=== PATIENT | male | born 1995 | race Asian ===

== ENCOUNTER 2017-06-02 08:48 | Emergency (ER) | payer OTHER ==
[~2017-06-02] VITALS: Ht 180.3 cm; Wt 118.4 kg
[2017-06-02 08:53] VITALS: Ht 180.3 cm; Wt 118.4 kg
[2017-06-02] MEDS ORDERED: CLIN300C2 PO (09:22)
[2017-06-02] MEDS ORDERED: ACETAMINOPHEN IV 100 ML IV ONE (09:45)
[2017-06-02] MEDS ORDERED: SODIUM CHLORIDE 0.9% 1000ML 1,000 ML IV ONE (09:45)
--- NOTE | 2017-06-02 10:32 | DIAGNOSTIC IMAGING REPORT ---
CHEST 2 VIEWS ROUTINE HISTORY: cough, fever COMPARISON: None. FINDINGS: The lungs are clear. Cardiac silhouette is normal in size. No pleural effusions. No pneumothorax. IMPRESSION: No acute process. Electronically signed by: Cristhian Cadena M.D. 06/02/2017 10:31 AM Dictated Date/Time: 06/02/2017 10:27 AM
[2017-06-02 10:33] LABS: BASO % 0.4 %; BASO ABS # 0.02 K/uL (0-0.2); EOS % 1.1 %; EOS ABS # 0.05 K/uL (0-0.5); HEMATOCRIT 43.4 % (42-52); HEMOGLOBIN 14.5 g/dL (14.0-18.0); IG# 0.03 K/uL (0.00-0.02); LYMPH % 11.8 %; LYMPH ABS # 0.53 K/uL (1.2-3.4); MEAN CELL VOLUME 87.9 fL (80-100); MEAN CORPUSCULAR HEMOGLOBIN 29.4 pg (25-34); MEAN CORPUSCULAR HGB CONC 33.4 g/dl (32-36); MONO % 24.3 %; MONO ABS # 1.09 K/uL (0.11-0.59); NEUT % 61.7 %; NEUT ABS # 2.76 K/uL (1.4-6.5); PLATELET COUNT 169 K/uL (130-400); RED CELL DISTRIBUTION WIDTH CV 13.2 % (11.5-14.5); RED CELL DISTRIBUTION WIDTH SD 41.9 fL (36.4-46.3); WHITE BLOOD COUNT 4.48 K/uL (4.8-10.8)
[2017-06-02 10:49] LABS: BLOOD UREA NITROGEN 9 mg/dl (7-18); CARBON DIOXIDE 31 mmol/L (21-32); CREATININE 0.76 mg/dl (0.60-1.40); GLUCOSE 107 mg/dl (70-99); POTASSIUM 4.3 mmol/L (3.5-5.1); SODIUM 137 mmol/L (136-145)
[2017-06-02 11:09] LABS: INFLUENZA B ANTIGEN Neg for Influ B (NEG)
[2017-06-02] MEDS ORDERED: OSELTAMIVIR PHOSPHATE 75 MG CAP PO STA (11:22)
[2017-06-02] MEDS ORDERED: OSEL75CA12 PO (11:25)
[2017-06-02 11:55] VITALS: BP 129/72; PULSE 104; TEMP 37.8; O2SAT 98
--- NOTE | 2017-06-04 05:52 | EMERGENCY ROOM VISIT NOTE ---
ED Visit Note First contact with patient: 09:32 Chief Complaint: Flulike symptoms. History of Present Illness: Mr. Khan is a 22-year-old male who ambulates into the ED with complaints of body aches, sore throat, cough. Patient reports last week he had dental work performed for what he describes as a common infection. He was placed on antibiotics by the dentist and was warned if he developed throat pain he could have a deep wound infection in the neck. He reports last night he started developing body aches, headache, a sore throat , a nonproductive cough. He reports he rested and went to sleep and then this morning when he awoke he was having lightheadedness and felt weak. He feels this is related to last week's dental surgery. Currently he places his headache in the bifrontal area. He rates his discomfort 5/10. He describes his discomfort as a pressure sensation. His pain is nonradiating. His pain worsens slightly with his cough. He has not identified any alleviating factors related to the pain. He has not taken any medications for pain prior to arrival at the hospital. He describes his sore throat as an achy sensation. He also rates this 5/10. His pain is nonradiating. His pain worsens with swallowing. He has not taken any medications for his discomfort. Associated with both of these areas of pain he reports he is still having body aches primarily in the large portion of the mid back, he has had a nonproductive cough and reports that he has had perceived fevers and chills. He denies recent head trauma, lightheadedness, visual changes, hearing changes, difficulty speaking, difficulty swallowing, voice changes, painful talking, neck pain/stiffness, chest pain, shortness of breath, wheezing, palpitations, abdominal pain, nausea, vomiting, diarrhea, constipation, skin eruptions, skin color changes, extremity weakness/numbness/tingling. Review of Systems: As noted above in history of present illness. All body systems were reviewed and found to be negative as noted above. Past Medical History: Patient denies. Current Medications: Patient denies. Allergies to Medications: Patient denies. Social History: Patient is University student; he feels safe in his home environment; he denies tobacco use. Physical Examination: Vital Signs: Date Time Temp Pulse Resp B/P (MAP) Pulse Ox O2 Delivery O2 Flow Rate FiO2 06/02/17 11:55 37.8 104 18 129/72 98 06/02/17 10:37 38.2 113 16 131/62 99 Room Air 06/02/17 08:53 38.0 127 20 130/86 99 Room Air GENERAL: 22-year-old female in mild to moderate distress due to symptoms, nontoxic-appearing, febrile and hemodynamically stable. NEUROLOGICAL: Awake, alert and oriented to person, place and time. Answering questions appropriately and following commands. Normal gait. Good hand eye coordination. No focal motor or sensory deficits. SKIN: Warm, dry and pink. No soft tissue eruptions or trauma noted. HEENT: Atraumatic and normocephalic. No tenderness or erythema over the frontal or maxillary sinuses. External ears are nontender. Auditory canals are pink and patent. Tympanic membranes are not erythematous or edematous. PERRLA. Sclera white and conjunctiva pink without drainage. No drainage from naris, but audible congestion.. Oral cavity moist and pink. Uvula is midline and no abscesses were seen. Pharynx is moderately erythematous and mildly edematous. No tonsillar hypertrophy or exudates. Speech normal ankle or. No lymphadenopathy. Trachea midline. No jugular venous distention. No laryngeal tenderness. BACK: No tenderness over the bony spine. No meningismus or nuchal rigidity. Full range of motion of the cervical spine. No CVA tenderness. THORAX: Lungs sounds are clear to auscultation and equal bilaterally with symmetrical chest wall. No wheezing, rales or rhonchi. No crepitus, tenderness , subcutaneous air or deformities noted. No increased respiratory effort or rate. HEART: Tachycardic rate and rhythm. No gallops, rubs or murmurs are appreciated. ABDOMEN: Flat, soft and nontender. Positive bowel sounds in all quadrants. No guarding, rigidity or organomegaly. EXTREMITIES: Moves all extremities well on command and with purpose. All distal neurovascular statuses are intact and equal bilaterally. No calf tenderness or cords. ED Course: Patient is assessed as noted above. Patient's medication list was reviewed. Laboratory testing: Test 06/02/17 09:58 Range/Units White Blood Count 4.48 4.8-10.8 K/uL Red Blood Count 4.94 4.7-6.1 M/uL Hemoglobin 14.5 14.0-18.0 g/dL Hematocrit 43.4 42-52 % Mean Corpuscular Volume 87.9 80-100 fL Mean Corpuscular Hemoglobin 29.4 25-34 pg Mean Corpuscular Hemoglobin Concent 33.4 32-36 g/dl Platelet Count 169 130-400 K/uL Mean Platelet Volume 11.0 7.4-10.4 fL Neutrophils (%) (Auto) 61.7 % Lymphocytes (%) (Auto) 11.8 % Monocytes (%) (Auto) 24.3 % Eosinophils (%) (Auto) 1.1 % Basophils (%) (Auto) 0.4 % Neutrophils # (Auto) 2.76 1.4-6.5 K/uL Lymphocytes # (Auto) 0.53 1.2-3.4 K/uL Monocytes # (Auto) 1.09 0.11-0.59 K/uL Eosinophils # (Auto) 0.05 0-0.5 K/uL Basophils # (Auto) 0.02 0-0.2 K/uL RDW Standard Deviation 41.9 36.4-46.3 fL RDW Coefficient of Variation 13.2 11.5-14.5 % Immature Granulocyte % (Auto) 0.7 % Immature Granulocyte # (Auto) 0.03 0.00-0.02 K/uL Sodium Level 137 136-145 mmol/L Potassium Level 4.3 3.5-5.1 mmol/L Chloride Level 103 98-107 mmol/L Carbon Dioxide Level 31 21-32 mmol/L Anion Gap 3.0 3-11 mmol/L Blood Urea Nitrogen 9 7-18 mg/dl Creatinine 0.76 0.60-1.40 mg/dl Est Creatinine Clear Calc Drug Dose 202.9 ml/min Estimated GFR () > 150.0 Estimated GFR (Non- 131.3 BUN/Creatinine Ratio 12.5 10-20 Random Glucose 107 70-99 mg/dl Calcium Level 9.0 8.5-10.1 mg/dl Influenza Type A Antigen POS for Influ A NEG Influenza Type B Antigen Neg for Influ B NEG Rapid Strep Screen: Negative. Culture pending. Chest X-Rays: Were read by myself and the radiologist showing no acute infiltrates, effusions or pneumothorax. Normal heart silhouette and bony anatomy. Patient was hydrated with normal saline and received thousand milligrams of acetaminophen IV. Patient was reassessed multiple times during his stay in the emergency department. When his influenza testing came back positive. Was given 75 mg of Tamiflu. Patient was educated about today's findings and instructed on his treatment plan ; he verbalized understanding and agreement with this plan. Clinical Impression: Influenza A. Decision-Making: Initially my differential diagnosis I considered pharyngitis from many causes, mononucleosis, tonsillitis, sinusitis, pneumonia, bronchitis, influenza and other causes. Disposition: Patient discharged home in stable condition; prior to departure he was reassessed and subjectively reported he was feeling better and rated his overall discomfort 1/10. He also had improvement of his fever. Plan: Patient was prescribed Tamiflu 75 mg 2 times a day for total of 5 days. Patient was encouraged to alternate ibuprofen and acetaminophen every 3 hours as needed for persistent pain and/or fevers. Patient was encouraged to stay well-hydrated. Patient was encouraged not to return to classes until he was fever free without the use of ibuprofen or acetaminophen for 24 hours. Patient was encouraged to follow-up at [facility] for recheck in 2-3 days. Patient was encouraged return ED for worsening/uncontrolled fevers, worsening pain, worsening cough, coughing up blood, shortness of breath/wheezing or any new/concerning symptoms.
== END 2017-06-02 11:57 | disposition home or self-care (01) ==
LOC: C.EDB 08:51
DX: J11.1 Influenza due to unidentified influenza virus with other respiratory manifestations (principal)